=== PATIENT | female | born 1960 | race Caucasian/White ===

== ENCOUNTER 2019-12-02 03:15 | Inpatient (IN) ==
[2019-12-02] MEDS ORDERED: MAGNESIUM HYDROXIDE SUSP 30 ML UDC PO PRN (03:42)
[2019-12-02] MEDS ORDERED: BISMUTH SUBSALICYLATE PER ML OMNICELL CHARGE PO PRN (03:42)
[2019-12-02] MEDS ORDERED: ALUMINUM/MAGNESIUM SUSP 30 ML UDC PO PRN (03:42)
[2019-12-02] MEDS ORDERED: ACETAMINOPHEN 325 MG TAB PO PRN (03:42)
[2019-12-02] MEDS ORDERED: SODIUM CHLORIDE 0.65% NA SOLN 45 ML (OCEAN) PRN (03:42)
[2019-12-02] MEDS: PATIENT'S HEIGHT AND/OR WEIGHT NEEDED SCH ×2 (09:33→16:01)
[2019-12-02] MEDS: SULFAMETHOXAZOLE/TRIMETHOPRIM DS 800/160MG TAB PO SCH ×2 (12:44→21:09)
[2019-12-02] MEDS ORDERED: NICOTINE 21 MG/24 HR TDSY TD ONE (14:00)
[2019-12-02] MEDS: GABAPENTIN 400 MG CAP PO SCH ×2 (14:51→21:09)
[2019-12-02] MEDS: TOPIRAMATE 100 MG TAB PO SCH (14:52)
[2019-12-02] MEDS: clonazePAM 0.5 MG TAB PO PRN ×2 (14:54→21:13)
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
[2019-12-02] MEDS: NICOTINE POLACRILEX 2 MG GUM MT PRN (17:54)
[2019-12-02] MEDS: TOPIRAMATE 50 MG TAB PO SCH (21:09)
[2019-12-02] MEDS: TRAZODONE HCL 100 MG TAB PO SCH (21:09)
[2019-12-03] MEDS ORDERED: TOPIRAMATE 100 MG TAB PO SCH (09:00)
[2019-12-03] MEDS: GABAPENTIN 400 MG CAP PO SCH ×3 (09:35→22:07)
[2019-12-03] MEDS: TOPIRAMATE 100 MG TAB PO SCH (09:36)
[2019-12-03] MEDS: SULFAMETHOXAZOLE/TRIMETHOPRIM DS 800/160MG TAB PO SCH ×2 (09:36→22:08)
[2019-12-03] MEDS: NICOTINE 21 MG/24 HR TDSY TD SCH (09:36)
--- NOTE | 2019-12-03 09:56 | Psychiatric Progress Note ---
Date of Service December 03, 2019 Impression / Recommendations Impression 59 y/o female from [facility] who has a reported history of bipolar disorder and substance abuse, recent hospitalization, multiple recent arrests, medication and treatment non-compliance, and homelessness admitted on 302 involuntary commitment with police involvement given unsafe living situation and reported SI. She initially appeared manic with pressured speech and irritability, states she has not been on psychotropic medications for 1 month, and has amphetamines in her system. She requested to resume her pre-[facility] medications and reviewed that she will not be given standing benzodiazepines here, as these are contraindicated given her ongoing substance abuse and poor judgment. She remains unwilling to retry antipsychotic medications for more acute mood stabilization, and will only agreed to topiramate and gabapentin. We requested records from multiple sources and are still awaiting them, and have a call into her outpatient adult protective caseworker for collateral information as well. Police have a warrant for her arrest and will be picking her up at discharge. (1) Bipolar I disorder: 12/02 - The patient was admitted to the [facility] ([facility] mental health unit) on q15 min checks (behavioral with suicide precautions) for safety. The patient will participate in group, recreational, and milieu therapies and will be offered additional individual and family sessions as clinically appropriate. Risks/benefits/alternatives reviewed re: restart of gabapentin and topamax. She is refusing restart of chlorpromazine and/or Lamictal at a lower dose. She is willing to regulate sleep with trazodone. 2 -stabilizing, slept well overnight, less agitated and pressured/hyperverbal today. Continue gabapentin and topiramate. I do have some concern about abuse potential with gabapentin, and may want to consider 1 week prescriptions at discharge. -Continue involuntary commitment, and gather information toward the need for ongoing commitment: Awaiting records from [place] and information from her outpatient BCM through [facility]. -Coordinate with police regarding active warrants. (2) Methamphetamine abuse: 12/03 -UDS at outside hospital + amphetamine; patient states her daughter was using meth and this is how it got into her system. She also has multiple criminal charges related to substance use, including drug possession/paraphernalia and a DUI from 2 separate arrests in September. She is not forthcoming with her substance use/abuse. Today reviewed concerns regarding prescription controlled substances, and that given the risks (further legal charges, driving under the influence, disinhibition, abuse/misuse/tolerance), we will not resume benzodiazepines and would not recommend she be prescribed controlled substances. She expressed unhappiness with this, but was willing to talk about alternative medication options. Discussed use of gabapentin, which she is already on, as well as hydroxyzine as needed. Inventory Assets Strengths: amenable to case management Needs: housing Risk Factors Assessment Male: No : Yes Do You Have Access To A Gun?: No Health Problems: Yes Mental Health Diagnoses: Yes Substance Use Disorders: Yes Previous Psychiatric Hospitalization: Yes Hopelessness: No Protective Factors Assessment Religion Beliefs: No : No Responsible for Young Children: No Employed: No Stable Relationships: No Supportive Family: No Good Rapport with Provider: No Interval History Identifying Information TAI FLEMING is a 59-year-old F who is currently homeless but historically a resident of [facility]), has a history bipolar disorder and recent admit to the [facility], and was admitted on 12/02/19 06:54 on a 302 involuntary commitment for inability to care for self and SI. Petitioner was police warrant and 302 completed prior to transfer from [facility]. Chief Complaint " Okay, trying to find some phone numbers to call, have some things I need to take care of". Review of Systems Notes + Restless, easily agitated Sleep Information Total Hours of Sleep: 5.5 Sleep Comments: pt on q-15 minute checks Meal Information Percent Meal Consumed - Breakfast: 100 Percent Meal Consumed - Lunch: 100 Percent Meal Consumed - Dinner: 100 Subjective Subjective Patient was seen & assessed and interval progress reviewed with nursing and social work. Staff report she refused to sign releases for anyone yesterday, and was not forthcoming; unclear if she has current outpatient psychiatric clinicians. She was withdrawn, irritable, restless, agitated, and uncooperative. In the evening, she was calm her and attended community meeting, and reported improved mood and hopefulness. She stated her goal was to work on her housing. She requested and received clonazepam 0.5 mg x 2 doses, nicotine gum, and trazodone at bedtime. She was started on antibiotics yesterday for UTI, and restarted on topiramate and gabapentin at her request. wood and wood products factory worker attempted to contact her outpatient adult protective caseworker through [facility] to clarify what services she has. On my assessment today, the patient states her mood has improved from admission, and denies suicidal thoughts. She states she slept well overnight, and has good appetite, currently eating breakfast. She is pleased to have been resumed on topiramate and gabapentin, stating they were helpful in the past. She does not want to resume [facility] stating it was too sedating. She is very focused on "my Klonopin," and gives frequently changing stories regarding who prescribes it or when she last took it. Reviewed PDMP, which shows last prescription for 30-day supply filled 10/03/2019 by [facility]. Patient states that she has not taken any medication since [facility] October. She denies substance abuse, and when asked about her admission UDS which was positive for amphetamine, she says her daughter was smoking meth around her and that must be how it got in her system. When asked about her recent DUI (for controlled substance), she states it was a misunderstanding. She initially states she was not aware of there were warrants out for her arrest, but then says she already called the consumer sales representative, as she missed one hearing and has another hearing coming up in a couple of weeks. When advised that we will discontinue benzodiazepines and not recommend she take controlled substances given the substance abuse issues, she became agitated and stated we should call police right now and have her go to intermediate, repeatedly stating "are you just here to upset me?" After discussion, she agreed to work with the psychiatric social worker to clarify her legal issues and options for outpatient care. She indicates that she plans to get an apartment in [place], and says she wants to work on stabilizing her mood, anxiety, developing positive coping skills, "getting my life back together, learning to not be aggressive." Physical Exam Psychiatric White female appearing older than her stated age, seated in no acute distress eating breakfast. Orientation: alert Apperance: appropriately dressed Short, dyed hair, wearing make-up and glasses. Eye Contact: + fair eye contact Motor Behavior: steady gait and station and + psychomotor agitation Restless, frequently shifting in her seat, increased psychomotor activity, easily agitated. Mildly pressured Affect: + irritable affect "Okay." Thought Process: + perseveration (On wanting benzodiazepines) Thought Content: + cognitive distortions Suicidal Thoughts: denies suicidal thoughts Homicidal Thoughts: denies homicidal thoughts Hallucinations: no auditory hallucinations and no visual hallucinations Cognition: attention grossly intact and language grossly intact Memory impaired versus unwilling to share information Insight: + poor insight Judgement: + poor judgement Vital Signs (Past 24 Hours) Last Vital Signs Temp 36.7 C 12/03/19 07:07 Pulse 89 12/03/19 07:08 Resp 18 12/03/19 07:07 BP 83/51 L 12/03/19 07:08 Results & Data Laboratory Results Labs reviewed from [facility] ER: CBC within normal limits, CMP notable for glucose 112, BUN 19.7, creatinine 0.95, chloride 108, alkaline phosphatase 125. TSH normal 1.170. Alcohol level negative, UDS + amphetamines. UA: Trace ketones and protein, moderate leukocyte esterase, + RBCs, WBCs, epithelial cells and bacteria. Current Inpatient Medications Current Inpatient Medications: Current Inpatient Medications Acetaminophen (Tylenol) 650 mg PO Q4H PRN PRN Reason: Headache or Minor Fever Stop: 01/01/20 03:41 Al Hydrox/Mg Hydrox/Simethicone (Maalox) 30 ml PO Q4H PRN PRN Reason: GI Upset Stop: 01/01/20 03:41 Bismuth Subsalicylate (Kaopectate) 15 ml PO PRN PRN PRN Reason: Loose Stool Stop: 01/01/20 03:41 Clonazepam (Klonopin) 0.5 mg PO BID PRN PRN Reason: Anxiety/Agitation Stop: 01/01/20 13:42 Last Admin: 12/02/19 21:13 Dose: 0.5 mg Documented by: Gabapentin (Neurontin) 400 mg PO TID [facility] Stop: 01/01/20 13:59 Last Admin: 12/02/19 21:09 Dose: 400 mg Documented by: Hydroxyzine HCl (Vistaril) 50 mg PO HSZ PRN PRN Reason: Insomnia Stop: 01/01/20 03:41 Hydroxyzine HCl (Vistaril) 25 mg PO Q4H PRN PRN Reason: Anxiety Stop: 01/01/20 03:41 Magnesium Hydroxide (Milk Of Magnesia) 30 ml PO DAILY PRN PRN Reason: Constipation Stop: 01/01/20 03:41 Miscellaneous (Remove Nicoderm Patch) 1 ea N/A DAILY@0859 [facility] Stop: 01/02/20 08:58 Nicotine (Nicoderm Cq) 21 mg TD QAM [facility] Stop: 01/02/20 08:59 Nicotine Polacrilex (Nicorette 2mg) 1 piece MT PRN PRN PRN Reason: cravings Stop: 01/01/20 13:50 Last Admin: 12/02/19 17:54 Dose: 1 piece Documented by: Sodium Chloride ([place] Nasal) 1 - 2 sprays NA PRN PRN PRN Reason: Nasal Dryness/Congestion Stop: 01/01/20 03:41 Topiramate (Topamax) 50 mg PO [facility] Stop: 01/01/20 21:59 Last Admin: 12/02/19 21:09 Dose: 50 mg Documented by: Topiramate (Topamax) 100 mg PO DAILY [facility] Stop: 01/01/20 14:29 Last Admin: 12/02/19 14:52 Dose: 100 mg Documented by: Trazodone HCl (Desyrel) 100 mg PO [facility] Stop: 01/01/20 21:59 Last Admin: 12/02/19 21:09 Dose: 100 mg Documented by: Trimethoprim/Sulfamethoxazole (Septra Ds 800/160mg Tab) 1 tab PO Q12 [facility]; Protocol Stop: 12/07/19 10:59 Last Admin: 12/02/19 21:09 Dose: 1 tab Documented by: Mental Health & Subst Abuse Tx Therapist Name of Therapist: [facility] [employer] Name of Fruit [employer]: AixaJaycob Eva Phone Number for [employer]: [phone] [employer] Release of Information: Obtained Post Discharge Appointments Primary Care Physician Name Of Family Doctor: Angela Hickman
[2019-12-03] MEDS: NICOTINE POLACRILEX 2 MG GUM MT PRN (18:54)
[2019-12-03] MEDS: TOPIRAMATE 50 MG TAB PO SCH (22:08)
[2019-12-03] MEDS: TRAZODONE HCL 100 MG TAB PO SCH (22:08)
[2019-12-04] MEDS: GABAPENTIN 400 MG CAP PO SCH (10:05)
[2019-12-04] MEDS: SULFAMETHOXAZOLE/TRIMETHOPRIM DS 800/160MG TAB PO SCH (10:05)
[2019-12-04] MEDS: TOPIRAMATE 100 MG TAB PO SCH (10:05)
[2019-12-04] MEDS: NICOTINE 21 MG/24 HR TDSY TD SCH (10:06)
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
[2019-12-04] MEDS: NICOTINE POLACRILEX 2 MG GUM MT PRN (10:59)
== END 2019-12-04 11:27 | DRG 885 ==
LOC: 3S 06:54 → SUATTDRO 06:54